=== PATIENT | male | born 1930 | race Caucasian/White ===

== ENCOUNTER → 2016-11-23 | Outpatient (CLI) | payer OTHER ==
[~2016-11-23] MED LIST: ASPI81TA82 PO; COQ1200C3 PO; CORE25TA PO; ENAL5TAB PO; GLIP5 PO; ROSU10 PO; TAB-TAB PO; VITA100017 PO
[2016-11-23 12:55] LABS: BLOOD GAS BASE EXCESS 0.3 mmol/L (-2-2); BLOOD GAS CARBOXYHEMOGLOBIN 1.5 % (0-4); BLOOD GAS HCO3 25 mmol/L (22-26); BLOOD GAS METHEMOGLOBIN 1.2 % (0-2); BLOOD GAS O2 HGB SATURATION 93 % (90-100); BLOOD GAS OXYGEN CONTENT 18.5 Vol % (12.0-20.0); BLOOD GAS PCO2 43 mmHg (38-42); BLOOD GAS PO2 79 mmHg (61-120); BLOOD GAS TOTAL HGB 14.2 G/DL (12.0-16.0); CRITICAL VALUE NO; DRAW SITE RT RADIAL; FIO2 21 %; NUMBER OF ARTERIAL PUNCTURES 1; STAT NO; TEMP CORR TO 98.6; ULNAR PULSE PRESENT
--- NOTE | 2016-12-07 10:27 | RSPPFT ---
DATE OF PROCEDURE: 11/23/16 COMMENTS: Spirometry with FVC of 1.7 predicted 3.5, FEV1 of 1.3 predicted 2.1, FEV1/FVC ratio at 78% predicted 61%. Lung volumes are decreased with TLC at 3.1 predicted 6.1. DLCO is 73% of predicted. IMPRESSION: On the basis of the above, patient has a restrictive lung defect.
== END ==
LOC: HRSP 12:01
PROVIDERS: ATTEND Internal Medicine Pulmonary Disease
DX: R06.02 Shortness of breath (principal)
CPT/HCPCS: 36600; 82805; 94060; 94620; 94726; 94729

== ENCOUNTER 2018-07-28 18:49 | Observation (INO) ==
[2018-07-28 19:01] VITALS: RESP 16
--- NOTE | 2018-07-28 19:07 | ED ---
HPI General Chief Complaint: Chest Pain Stated Complaint: chest pain Time Seen by Provider: 07/28/18 18:59 Source: patient Mode of arrival: ambulatory Limitations: no limitations History of Present Illness HPI narrative: 87 YO M with PMH of CAD s/p CABG and stenting on Brilinta presents to the ED for evaluation of 6/10 chest pain. Onset ~90 minutes before arrival while at rest. Sharp in quality. The patient denies associated SOB, N/V , diaphoresis. He took a SL nitro, called EMS. Pain was still present on EMS arrival. They report EKG with LBBB, no acute findings. The patient was administered 2 more doses SL nitroglycerin, asymptomatic on arrival to the ED. patient states he has been feeling well until this pain. He denies fever, chills, cough, shortness of breath, nausea, vomiting, dysuria, edema in the lower extremities. He is followed by Dr. Lori Alexander, PCP and Dr. Beck, cardiology. Related Data Home Medications Medication Instructions Recorded Confirmed carvedilol See Label Instructions .ROUTE 07/28/18 07/28/18 .COMPLEX glipizide See Label Instructions .ROUTE 07/28/18 07/28/18 .COMPLEX ticagrelor [Brilinta] See Label Instructions .ROUTE 07/28/18 07/28/18 .COMPLEX Allergies Allergy/AdvReac Type Severity Reaction Status Date / Time No Known Allergies Allergy Uncoded 09/28/14 16:52 Review of Systems ROS: all other systems reviewed are negative PMFSH Medical History Medical History Diabetes (Acute) High cholesterol (Acute) Surgical History Surgical History History of amputation of finger of left hand (Acute) History of ankle surgery (Acute) History of coronary artery stent placement (Acute) History of hip surgery (Acute) History of quadruple bypass (Acute) History of tonsillectomy (Acute) Social History Social History Smoking Status: Former smoker How Often Do You Have a Drink Containing Alcohol: Never Recent Travel in [facility] within the Last 8 Weeks: No Recent Out of Country Travel within the Last 8 Weeks: No Exam Narrative Exam Narrative: GENERAL: Well-nourished and well-developed, pleasant white male in no acute distress. SKIN: Focused skin assessment warm/dry. Multiple chronic skin changes/sun damage noted. HEAD: Atraumatic. Normocephalic. EYES: Pupils equal and round. No scleral icterus. No injection or drainage. ENT: Hearing aids in place. No nasal bleeding or discharge. Mucous membranes pink and moist. NECK: Trachea midline. No JVD. CARDIOVASCULAR: Regular rate and rhythm. No murmur appreciated. RESPIRATORY: No accessory muscle use. Clear to auscultation. Breath sounds equal bilaterally. GASTROINTESTINAL: Abdomen soft, non-tender, nondistended. Hepatic and splenic margins not palpable. MUSCULOSKELETAL: No obvious deformities. No clubbing. No cyanosis. No edema. NEUROLOGICAL: Awake and alert. No obvious cranial nerve deficits. Motor grossly within normal limits. Normal speech. PSYCHIATRIC: Appropriate mood and affect; insight and judgment normal. Course Initial Documented Vital Signs Pulse Rate 66 07/28/18 18:57 Respiratory Rate 16 07/28/18 18:57 Blood Pressure 156/67 H 07/28/18 18:57 Pulse Oximetry 95 07/28/18 18:57 Last Documented Vital Signs Pulse Rate 56 L 07/28/18 21:15 Respiratory Rate 16 07/28/18 21:15 Blood Pressure 114/55 L 07/28/18 21:15 Pulse Oximetry 94 L 07/28/18 21:15 Clinical Decision Support HEART Score Questions History: Moderately suspicious EKG: Normal Age: 65 years+ Risk Factors: 3 or more Risk Factors or Hx of Atherosclerotic Disease Initial Troponin: Normal Limit Heart Score HEART Score: 5 5 Medical Decision Making [facility] Narrative Medical decision making narrative: 87 YO M with PMH of CAD s/p CABG and stenting on Brilinta presents to the ED for evaluation of 6/10 chest pain. Onset about 90 minutes before coming to the hospital. Patient took a sublingual nitro with no improvement of symptoms. He had to additional doses in route. On presentation he is asymptomatic. Vitals reviewed. Physical exam without acute findings. CBC unremarkable. CMP with evidence of dehydration. EKG without acute changes. CXR with no acute CP disease. Troponin negative x1. Patient was administered 1 L normal saline. Patient is followed by Dr. Beck. Given the patient's extensive risk factors and HEART score of 5 he will be admitted to the chest pain center for further evaluation. He is agreeable to this plan. Please see [facility] notes for disposition Medical Screen Exam Complete: Yes Emergency Medical Condition: Yes Differential Diagnosis Differential Diagnosis: Angina versus chest pain versus ACS versus PNA versus other Lab Data Result diagrams: 07/28/18 19:00 07/28/18 19:00 Lab Results 07/28/18 07/28/18 07/28/18 Range/Units 19:00 19:00 19:00 WBC 6.5 (4.0-11.0) th/mm3 RBC 4.42 L (4.50-5.90) mil/mm3 Hgb 14.3 (13.0-17.0) gm/dL Hct 42.6 (39.0-51.0) % MCV 96.5 (80.0-100.0) fL MCH 32.3 (27.0-34.0) pg MCHC 33.5 (32.0-36.0) % RDW 14.8 (11.6-17.2) % Plt Count 158 (150-450) th/mm3 MPV 7.4 (7.0-11.0) fL Neut % (Auto) 52.3 (16.0-70.0) % Lymph % (Auto) 33.5 (9.0-44.0) % Crosby % (Auto) 9.2 H (0.0-8.0) % Eos % (Auto) 4.1 H (0.0-4.0) % Baso % (Auto) 0.9 (0.0-2.0) % Neut # (Auto) 3.4 (1.8-7.7) th/mm3 Lymph # (Auto) 2.2 (1.0-4.8) th/mm3 [place] # (Auto) 0.6 (0.0-0.9) th/mm3 Eos # (Auto) 0.3 (0.0-0.4) th/mm3 Baso # (Auto) 0.1 (0.0-0.2) th/mm3 WBC Differential . Differential Comment Auto diff final PT 10.2 (9.8-11.6) sec INR 1.0 Ratio APTT 25.2 (23.4-31.7) sec Sodium 141 (136-145) meq/L Potassium 4.3 (3.5-5.1) meq/L Chloride 107 (98-107) meq/L Carbon Dioxide 25.1 (21.0-32.0) meq/L Anion Gap 9 (5-15) meq/L BUN 30 H (7-18) mg/dL Creatinine 1.59 H (0.60-1.30) mg/dL Estimated GFR 41 L (>89) mL/min Random Glucose 131 H (74-106) mg/dL Calcium 9.0 (8.5-10.1) mg/dL Total Bilirubin 0.2 (0.2-1.0) mg/dL AST 21 (15-37) U/L ALT 23 (12-78) U/L Alkaline Phosphatase 78 (45-117) U/L Troponin I Less than 0.02 L (0.02-0.05) ng/mL Total Protein 6.9 (6.4-8.2) g/dL Albumin 3.3 L (3.4-5.0) g/dL Imaging Data Radiologist's impression: Chest X-Ray 07/28/18 18:55 CONCLUSION: Stable minimal basilar scarring or atelectasis. Prior CABG. ECG Data Attestation: I personally reviewed and interpreted this ECG as follows: Interpretation: EKG rate 60, sinus rhythm. AR interval 205, QRS 114, QTc [address] changes. Reviewed by Dr. Henning per Discharge Plan Discharge Disposition Patient Disposition: 30 Still Patient Physicians Team ED Provider: Jesus Henning ED Midlevel Provider: Thuy Santiago Primary Care Provider: Lori Alexander Attending Provider: Mehul Medeiros Other Providers: Lois Abreu Discharge Interventions Interventions: Vital Signs Last Done: 07/28/18 21:15 Status ED Status: Admitted Observation Patient
[2018-07-28 19:38] LABS: Baso # (Auto) 0.1 th/mm3 (0.0-0.2); Baso % (Auto) 0.9 % (0.0-2.0); Eos # (Auto) 0.3 th/mm3 (0.0-0.4); Eos % (Auto) 4.1 % (0.0-4.0); Hematocrit 42.6 % (39.0-51.0); Hemoglobin 14.3 gm/dL (13.0-17.0); Lymph # (Auto) 2.2 th/mm3 (1.0-4.8); Lymph % (Auto) 33.5 % (9.0-44.0); Mean Corpuscular HGB Conc 33.5 % (32.0-36.0); Mean Corpuscular Hemoglobin 32.3 pg (27.0-34.0); Mean Corpuscular Volume 96.5 fL (80.0-100.0); Mean Platelet Volume 7.4 fL (7.0-11.0); Mono # (Auto) 0.6 th/mm3 (0.0-0.9); Mono % (Auto) 9.2 % (0.0-8.0); Neut # (Auto) 3.4 th/mm3 (1.8-7.7); Neut % (Auto) 52.3 % (16.0-70.0); Platelet Count 158 th/mm3 (150-450); Red Blood Count 4.42 mil/mm3 (4.50-5.90); Red Cell Distribution Width 14.8 % (11.6-17.2); White Blood Count 6.5 th/mm3 (4.0-11.0)
--- NOTE | 2018-07-28 19:38 | XR ---
EXAM DATE: 07/28/2018 7:24 PM EST AGE/SEX: 87 years / Male INDICATIONS: Chest pain. CLINICAL DATA: This is the patient's initial encounter. Patient reports that signs and symptoms have been present for 1 day and indicates a pain score of 7/10. MEDICAL/SURGICAL HISTORY: Myocardial infarction. Hypertension. Coronary artery disease . CABG. Heart stents. COMPARISON: [facility], XR CHEST PA AND LAT, 12/20/2017. . FINDINGS: Mild basilar density, probably atelectasis and scarring similar to December. No new infiltrate. Previous CABG. No pneumothorax. CONCLUSION: Stable minimal basilar scarring or atelectasis. Prior CABG. Electronically signed by: Fransico Bradley MD 07/28/2018 7:27 PM EST
[2018-07-28 19:48] LABS: Activated Partial Thrombo Time 25.2 sec (23.4-31.7); Prothrombin Time 10.2 sec (9.8-11.6)
[2018-07-28 20:01] LABS: Anion Gap 9 meq/L (5-15); Aspartate Aminotransferase 21 U/L (15-37); Blood Urea Nitrogen 30 mg/dL (7-18); Carbon Dioxide 25.1 meq/L (21.0-32.0); Chloride 107 meq/L (98-107); Glomerular Filtration Rate 41 mL/min (>89); Glucose,Random 131 mg/dL (74-106); Potassium 4.3 meq/L (3.5-5.1); Sodium 141 meq/L (136-145)
[2018-07-28 20:02] LABS: Alanine Aminotransferase 23 U/L (12-78); Albumin 3.3 g/dL (3.4-5.0); Alkaline Phosphatase 78 U/L (45-117); Total Protein 6.9 g/dL (6.4-8.2)
[2018-07-28] MEDS ORDERED: Sod Chloride 0.9% Inj 1,000 ML IV.SIG ONE (21:33)
[2018-07-28 22:38] LABS: Creatine Kinase 37 U/L (39-308)
[2018-07-29 01:05] LABS: Creatine Kinase 35 U/L (39-308)
[2018-07-29 07:41] VITALS: BP 147/68; TEMP 98.2; O2SAT 91
--- NOTE | 2018-07-29 09:56 | P.HPCA ---
History of Present Illness Primary Care Physician: Lori Alexander MD Chief Complaint: Chest pain History of Present Illness: 87 year old male with history of coronary artery disease including CABG x4 (2000 ) and cardiac stent (March 2018) presents emergency room for further evaluation of nonexertional chest pain. Onset 7 PM. Location left anterior chest described as a quick onset characterizes pressure. Moderate severity. No radiation. Duration 5-10 minutes. No associated symptoms of nausea, vomiting, dyspnea, or diaphoresis. No precipitating factors. Took nitro sublingual does not recall immediate relief from Nitro. Reports over the last week required nitro glycerin tablets every other day or so. Follows with Dr. Beck and reports being in contact with the physician sugar laboratory assistant last week regarding increasing use of nitroglycerin after developing chest pain during cardiac rehab. Attends cardiac rehab three day a week for 1.5 hour intervals. Reports chest pressure generally occurs after working out. No further chest pain since arriving to ER. Past cardiac testing Recall having a recent cardiac stress testing after cardiac stent placed March 2018, believes testing completed at Dr. Beck's office. CABGx4 17-18 years ago-[place] Cardiac stent March 2018-reports DC while visiting in [place] Social history Known CAD, diabetes, hyperlipidemia, and hypertension. Former smoking, quitting in 1966. No alcohol or recreational drug use. . Lives part-time between [place] and [place]. Ambulates independently. Endorses active lifestyle attending cardiac rehab 3 times a week. - Diagnosis (1) Chest pain Review of Systems All other systems reviewed negative except as stated in [facility] PMFSH - History History Provided By: Patient - Medical History Medical History: Medical History (Last Updated 07/29/18 @ 13:17 by FAM Quick) CAD (coronary artery disease) Diabetes High cholesterol Hypertension - Surgical History Surgical History: Surgical History (Last Reviewed 07/29/18 @ 13:17 by FAM Quick) History of amputation of finger of left hand History of ankle surgery History of coronary artery stent placement History of hip surgery History of quadruple bypass History of tonsillectomy - Tobacco History Second Hand Smoke Exposure: No Tobacco Use In Past 30 Days: No Smoking Status: Former smoker (quit 1966) - Alcohol History How Often Do You Have a Drink Containing Alcohol: Never - Substance Use History Substance History: Past History - Travel History Recent Travel in the [facility] Within the Last 8 Weeks: No Recent Travel Out of the Country Within the Last 8 Weeks: No - Immunization History Tetanus Immunization: Unsure Medications and Allergies Active Medications: Active Medications Sodium Chloride (Ns Flush) 2 ml IV.FLUSH UNSCH PRN PRN Reason: FLUSH AFTER USING IV ACCESS Sodium Chloride (Ns Flush) 2 ml IV.FLUSH PRN PRN PRN Reason: FLUSH AFTER USING IV ACCESS Sodium Chloride (Ns Flush) 2 ml IV.FLUSH BID HECTOR Last Admin: 07/29/18 00:29 Dose: 2 ml Allergies Allergy/AdvReac Type Severity Reaction Status Date / Time No Known Allergies Allergy Uncoded 09/28/14 16:52 Home Medications Medication Instructions Recorded Confirmed Type carvedilol See Label Instructions .ROUTE 07/28/18 07/28/18 History .COMPLEX glipizide See Label Instructions .ROUTE 07/28/18 07/28/18 History .COMPLEX ticagrelor [Brilinta] 90 mg PO DAILY 07/28/18 07/29/18 History Multi Vitamin 1 tab PO DAILY 07/29/18 07/29/18 History aspirin 81 mg PO DAILY 07/29/18 07/29/18 History coenzyme Q10 200 mg PO DAILY 07/29/18 07/29/18 History rosuvastatin 40 mg PO DAILY 07/29/18 07/29/18 History Exam Vital signs: Vital Signs 07/28/18 18:57 07/28/18 20:00 07/28/18 21:15 Temperature Pulse Rate 66 56 L Respiratory Rate 16 16 Blood Pressure 156/67 H 114/55 L Pulse Oximetry 95 95 94 L 07/28/18 22:31 07/29/18 00:00 07/29/18 04:00 Temperature 98.8 F 98.6 F 98.6 F Pulse Rate 57 L 58 L 54 L Respiratory Rate 16 16 16 Blood Pressure 140/66 124/58 L 159/70 H Pulse Oximetry 95 95 93 L 07/29/18 07:39 Temperature 98.2 F Pulse Rate 56 L Respiratory Rate 16 Blood Pressure 147/68 H Pulse Oximetry 91 L Intake & Output 07/28/18 07/29/18 07/29/18 18:59 06:59 18:59 Intake Total 1000 / 1000 Balance 1000 / 1000 Weight 98.883 kg 98.883 kg Intake: IV 1000 / 1000 NS Inj 1,000 ML @ Wide Open IV. 1000 / 1000 SIG BOLUS ONE Rx#:[id number] Oral 0 / 0 Other: # Voids 2 Date of Last Bowel Movement 07/28/18 Weight On Admission 98.883 kg Narrative: GENERAL: Alert WN, WD, NAD, very pleasant, obese, elderly male HEAD: NC, AT EYES: Sclera clear, conjunctiva without injection ENT: Mucous membranes pink and moist NECK: Supple, no masses, trachea midline CV: RRR, without murmur, rub, gallop, no JVD, S1-S2. Chest wall nontender to palpation. RESP: Clear lungs throughout bilateral, no crackles, wheeze, rhonchi, symmetrical chest rise, nonlabored, able to speak in full sentences ABD: Soft, NT, ND, no masses, positive bowel tones EXT: Pulses +2x4, no dependent edema MS: Normal tone x4 extremities, nontender, no obvious deformities, full range of motion NEURO: CN II through CN XII grossly intact, motor strength 5/5, gait WNL PSYCH: A+O x3, pleasant affect, appropriate speech, appropriate mood and affect , insight and judgment SKIN: Normal turgor, normal texture, no lesions, no rashes, brisk cap refill, even hair distribution Results 07/28/18 19:00 07/28/18 19:00 Cardiac Enzymes 07/28/18 07/28/18 07/29/18 Range/Units 19:00 21:20 00:00 AST 21 (15-37) U/L Troponin I Less than 0.02 L Less than 0.02 L Less than 0.02 L (0.02-0.05) ng/mL Coagulation 07/28/18 Range/Units 19:00 PT 10.2 (9.8-11.6) sec APTT 25.2 (23.4-31.7) sec CBC 07/28/18 Range/Units 19:00 WBC 6.5 (4.0-11.0) th/mm3 RBC 4.42 L (4.50-5.90) mil/mm3 Hgb 14.3 (13.0-17.0) gm/dL Hct 42.6 (39.0-51.0) % Plt Count 158 (150-450) th/mm3 Neut # (Auto) 3.4 (1.8-7.7) th/mm3 Lymph # (Auto) 2.2 (1.0-4.8) th/mm3 [place] # (Auto) 0.6 (0.0-0.9) th/mm3 Eos # (Auto) 0.3 (0.0-0.4) th/mm3 Baso # (Auto) 0.1 (0.0-0.2) th/mm3 Comprehensive Metabolic Panel 07/28/18 Range/Units 19:00 Sodium 141 (136-145) meq/L Potassium 4.3 (3.5-5.1) meq/L Chloride 107 (98-107) meq/L Carbon Dioxide 25.1 (21.0-32.0) meq/L BUN 30 H (7-18) mg/dL Creatinine 1.59 H (0.60-1.30) mg/dL Calcium 9.0 (8.5-10.1) mg/dL AST 21 (15-37) U/L ALT 23 (12-78) U/L Alkaline Phosphatase 78 (45-117) U/L Total Protein 6.9 (6.4-8.2) g/dL Albumin 3.3 L (3.4-5.0) g/dL Intake and Output 07/28/18 07/29/18 07/29/18 22:59 06:59 14:59 Intake Total 1000 / 1000 Balance 1000 / 1000 Intake: IV 1000 / 1000 NS Inj 1,000 ML @ Wide Open IV. 1000 / 1000 SIG BOLUS ONE Rx#:[id number] Oral 0 / 0 Other: # Voids 2 Date of Last Bowel Movement 07/28/18 07/28/18 Weight 98.883 kg 98.883 kg Weight On Admission 98.883 kg - Imaging and Cardiology Imaging: Impressions Chest X-Ray 07/28/18 18:55 CONCLUSION: Stable minimal basilar scarring or atelectasis. Prior CABG. EKG interpretations - EKG EKG results cardiology: sinus rhythm (LAD, nonspecific ST-T segment change) Caprini VTE Risk Assessment Caprini VTE Risk Assessment: Moderate/High Risk (score >= 2) Caprini Risk Assessment Model: Point Value = 1 Point Value = 2 Point Value = 3 Point Value = 5 Age 41-60 Minor surgery BMI > 25 kg/m2 Swollen legs Varicose veins or History of unexplained or recurrent spontaneous Oral contraceptives or hormone replacement Sepsis (< 1 month) Serious lung disease, including pneumonia (< 1 month) Abnormal pulmonary function Acute myocardial infarction Congestive heart failure (< 1 month) History of inflammatory bowel disease Medical patient at bed rest Age 61-74 Arthroscopic surgery Major open surgery (> 45 min) Laparoscopic surgery (> 45 min) Malignancy Confined to bed (> 72 hours) Immobilizing plaster cast Central venous access Age >= 75 History of VTE Family history of VTE Factor V Leiden Prothrombin [id number] Lupus anticoagulant Anticardiolipin antibodies Elevated serum homocysteine Heparin-induced thrombocytopenia Other congenital or acquired thrombophilia Stroke (< 1 month) Elective arthroplasty Hip, pelvis, or leg fracture Acute spinal cord injury (< 1 month) Prophylaxis Regimen: Total Risk Factor Score Risk Level Prophylaxis Regimen 0-1 Low Early ambulation 2 Moderate Order ONE of the following: *Sequential Compression Device (SCD) *Heparin 5000 units SQ BID 3-4 Higher Order ONE of the following medications: *Heparin 5000 units SQ TID *Enoxaparin/Lovenox 40 mg SQ daily (WT < 150 kg, CrCl > 30 mL/min) *Enoxaparin/Lovenox 30 mg SQ daily (WT < 150 kg, CrCl > 10-29 mL/min) *Enoxaparin/Lovenox 30 mg SQ BID (WT < 150 kg, CrCl > 30 mL/min) AND/OR *Sequential Compression Device (SCD) 5 or more Highest Order ONE of the following medications: *Heparin 5000 units SQ TID (Preferred with Epidurals) *Enoxaparin/Lovenox 40 mg SQ daily (WT < 150 kg, CrCl > 30 mL/min) *Enoxaparin/Lovenox 30 mg SQ daily (WT < 150 kg, CrCl > 10-29 mL/min) *Enoxaparin/Lovenox 30 mg SQ BID (WT < 150 kg, CrCl > 30 mL/min) AND *Sequential Compression Device (SCD) Assessment and Plan - Assessment (1) Chest pain Code(s): R07.9 - Chest pain, unspecified Status: Acute Plan: Admitted to chest pain center. ACS ruled out with 3 sets of EKGs and cardiac enzymes. Monitor on telemetry overnight. No further chest pain. Will be seen and evaluated by Dr. Mehul Medeiros. Call will be placed to patient's underwater roboticist, Dr. Beck, for further recommendations. Patient reports recent nuclear testing 1.5 months ago, recent cardiac stent March, and recent need for nitroglycerin SL for discomfort suggestive of angina. Further disposition to follow after seen by Dr. Medeiros and speaking with Dr. Beck or Dr. Beck's physician sugar laboratory assistant. [address] Beck, cardiac cath reviewed. Ebony Darling okay with discharge since patient has been chest pain free and ACS ruled out. Increase Imdur to 60 mg daily and follow up with in [address] Beck states patient has not had recent nuclear testing in their office, however may consider repeating at next appointment. Dr. Beck reviewed recent cardiac catheterization from March (stent placed to proximal circumflex). Dr. Medeiros also contacted Dr. Beck to discuss plan of care. Plan to discharge home, appointment has been scheduled for next Wednesday06/08/18. Discussed with patient, agreeable to plan of care and verbalized understanding. H&P: Quality - VTE Deep Vein Thrombosis/Pulmonary Embolism Present on Admission: No (1) Chest pain Qualifiers: Chest pain type: unspecified Qualified Code(s): R07.9 - Chest pain, unspecified
[2018-07-29 10:03] VITALS: PULSE 52
--- NOTE | 2018-07-29 11:33 | P.PNCA ---
Subjective Interval history: Very pleasant 87-year-old gentleman followed by Dr. Womack. He has a long history of coronary disease with bypass grafting about 18-20 years ago. Subsequently he had a stent placed in March of this last year while [place]. Subsequent to that time he is been having some intermittent anginal- like chest pain generally relieved with nitro. He is active at cardiac rehab and is followed closely there. He has been evaluated by Dr. Snyder a daughter who is aware of the situation. He currently presents with a story that is very consistent for ischemic episode. History and documentation is as entered. He has currently ruled out for ACS by chest pain center protocol and is pain-free. After discussion with Dr. Barton decision was made to increase his nitrates and discharge for follow-up on Wednesday in his office. At that time he will most likely be scheduled for a repeat catheterization. Additional history and physical documentation is as recorded Medications and Allergies Active Medications: Active Medications Sodium Chloride (Ns Flush) 2 ml IV.FLUSH UNSCH PRN PRN Reason: FLUSH AFTER USING IV ACCESS Sodium Chloride (Ns Flush) 2 ml IV.FLUSH PRN PRN PRN Reason: FLUSH AFTER USING IV ACCESS Sodium Chloride (Ns Flush) 2 ml IV.FLUSH BID HECTOR Last Admin: 07/29/18 10:06 Dose: 2 ml Allergies Allergy/AdvReac Type Severity Reaction Status Date / Time No Known Allergies Allergy Uncoded 09/28/14 16:52 Home Medications Medication Instructions Recorded Confirmed Type carvedilol See Label Instructions .ROUTE 07/28/18 07/28/18 History .COMPLEX glipizide See Label Instructions .ROUTE 07/28/18 07/28/18 History .COMPLEX ticagrelor [Brilinta] 90 mg PO DAILY 07/28/18 07/29/18 History Multi Vitamin 1 tab PO DAILY 07/29/18 07/29/18 History aspirin 81 mg PO DAILY 07/29/18 07/29/18 History coenzyme Q10 200 mg PO DAILY 07/29/18 07/29/18 History rosuvastatin 40 mg PO DAILY 07/29/18 07/29/18 History Physical Exam Vital signs: Vital Signs 07/28/18 18:57 07/28/18 20:00 07/28/18 21:15 Temperature Pulse Rate 66 56 L Respiratory Rate 16 16 Blood Pressure 156/67 H 114/55 L Pulse Oximetry 95 95 94 L 07/28/18 22:31 07/29/18 00:00 07/29/18 04:00 Temperature 98.8 F 98.6 F 98.6 F Pulse Rate 57 L 58 L 54 L Respiratory Rate 16 16 16 Blood Pressure 140/66 124/58 L 159/70 H Pulse Oximetry 95 95 93 L 07/29/18 07:39 07/29/18 08:00 Temperature 98.2 F Pulse Rate 56 L 52 L Respiratory Rate 16 Blood Pressure 147/68 H Pulse Oximetry 91 L Intake & Output 07/28/18 07/29/18 07/29/18 18:59 06:59 18:59 Intake Total 1000 / 1000 Balance 1000 / 1000 Weight 98.883 kg 98.883 kg Intake: IV 1000 / 1000 NS Inj 1,000 ML @ Wide Open IV. 1000 / 1000 SIG BOLUS ONE Rx#:[id number] Oral 0 / 0 Other: # Voids 2 Date of Last Bowel Movement 07/28/18 07/28/18 Weight On Admission 98.883 kg Narrative: Well-developed somewhat obese gentleman resting comfortably Neck supple no JVD masses nodes or bruits Chest clear to auscultation no rales wheezes or rhonchi but well healed sternotomy scar Cardiovascular regular rhythm no gallop rub or murmur Abdomen soft nontender no guarding or rebound Results 07/28/18 19:00 07/28/18 19:00 Cardiac Enzymes 07/28/18 07/28/18 07/29/18 Range/Units 19:00 21:20 00:00 AST 21 (15-37) U/L Troponin I Less than 0.02 L Less than 0.02 L Less than 0.02 L (0.02-0.05) ng/mL Coagulation 07/28/18 Range/Units 19:00 PT 10.2 (9.8-11.6) sec APTT 25.2 (23.4-31.7) sec CBC 07/28/18 Range/Units 19:00 WBC 6.5 (4.0-11.0) th/mm3 RBC 4.42 L (4.50-5.90) mil/mm3 Hgb 14.3 (13.0-17.0) gm/dL Hct 42.6 (39.0-51.0) % Plt Count 158 (150-450) th/mm3 Neut # (Auto) 3.4 (1.8-7.7) th/mm3 Lymph # (Auto) 2.2 (1.0-4.8) th/mm3 [place] # (Auto) 0.6 (0.0-0.9) th/mm3 Eos # (Auto) 0.3 (0.0-0.4) th/mm3 Baso # (Auto) 0.1 (0.0-0.2) th/mm3 Comprehensive Metabolic Panel 07/28/18 Range/Units 19:00 Sodium 141 (136-145) meq/L Potassium 4.3 (3.5-5.1) meq/L Chloride 107 (98-107) meq/L Carbon Dioxide 25.1 (21.0-32.0) meq/L BUN 30 H (7-18) mg/dL Creatinine 1.59 H (0.60-1.30) mg/dL Calcium 9.0 (8.5-10.1) mg/dL AST 21 (15-37) U/L ALT 23 (12-78) U/L Alkaline Phosphatase 78 (45-117) U/L Total Protein 6.9 (6.4-8.2) g/dL Albumin 3.3 L (3.4-5.0) g/dL Intake and Output 07/28/18 07/29/18 07/29/18 22:59 06:59 14:59 Intake Total 1000 / 1000 Balance 1000 / 1000 Intake: IV 1000 / 1000 NS Inj 1,000 ML @ Wide Open IV. 1000 / 1000 SIG BOLUS ONE Rx#:[id number] Oral 0 / 0 Other: # Voids 2 Date of Last Bowel Movement 07/28/18 07/28/18 07/28/18 Weight 98.883 kg 98.883 kg Weight On Admission 98.883 kg - Imaging and Cardiology Imaging: Impressions Chest X-Ray 07/28/18 18:55 CONCLUSION: Stable minimal basilar scarring or atelectasis. Prior CABG. Assessment and Plan - Assessment (1) Chest pain Code(s): R07.9 - Chest pain, unspecified Status: Acute Plan: [address] Beck, cardiac cath reviewed. If patient pain free, may be discharge home with follow up in 2 weeks. Increase Imdur 60 mg daily. No recent Lexiscan per Dr. Beck, possible repeating lexiscan at next appointment.
--- NOTE | 2018-07-29 11:40 | ECG ---
Date Performed: 07/28/2018 Time Performed: 23:57:39 PTAGE: 87 years EKG: SINUS BRADYCARDIA WITH FIRST DEGREE AV BLOCK LOW QRS VOLTAGE IN PRECORDIAL LEADS POSSIBLE A NTERIOR MYOCARDIAL INFARCTION ABNORMAL ECG PREVIOUS TRACING : 07/28/2018 21.16 DOCTOR: Mehul Medeiros Interpretating Date/Time 07/29/2018 11:39:00
--- NOTE | 2018-07-29 11:41 | ECG ---
Date Performed: 07/28/2018 Time Performed: 19:01:30 PTAGE: 87 years EKG: Sinus rhythm LOW QRS VOLTAGE IN PRECORDIAL LEADS POSSIBLE ANTERIOR MYOCARDIAL INFARCTION ABNORMAL ECG No signific ant change PREVIOUS TRACING : 09/29/2015 06.05 DOCTOR: Mehul Medeiros Interpretating Date/Time 07/29/2018 11:41:12
--- NOTE | 2018-07-29 11:41 | ECG ---
Date Performed: 07/28/2018 Time Performed: 21:16:28 PTAGE: 87 years EKG: SINUS BRADYCARDIA WITH FIRST DEGREE AV BLOCK LOW QRS VOLTAGE IN PRECORDIAL LEADS POSSIBLE A NTERIOR MYOCARDIAL INFARCTION ABNORMAL ECG No significant change PREVIOUS TRACING : 07/28/2018 19.01 DOCTOR: Mehul Medeiros Interpretating Date/Time 07/29/2018 11:39:47
== END 2018-07-29 11:40 | disposition home or self-care (01) ==
LOC: NEPE 18:49 → NEDA 18:49 → NEPHCDU 22:10
PROVIDERS: ADMIT Internal Medicine Interventional Cardiology; ATTEND Internal Medicine Interventional Cardiology
DX: I10 Essential (primary) hypertension; Z79.899 Other long term (current) drug therapy; Z95.1 Presence of aortocoronary bypass graft; I44.7 Left bundle-branch block, unspecified; Z79.82 Long term (current) use of aspirin; E78.5 Hyperlipidemia, unspecified; I25.10 Atherosclerotic heart disease of native coronary artery without angina pectoris; R07.89 Other chest pain; E66.9 Obesity, unspecified; E11.9 Type 2 diabetes mellitus without complications; Z95.5 Presence of coronary angioplasty implant and graft; Z87.891 Personal history of nicotine dependence